=== PATIENT | female | born 1980 ===

== ENCOUNTER → 2019-01-02 | Outpatient (REF) | payer OTHER ==
[2019-01-02 14:15] LABS: ALT/SGPT 18 U/L (12-78); BLOOD UREA NITROGEN 9 MG/DL (7-18); CPK CREATINE PHOSPHOKINASE 54 U/L (26-192); CREATININE FOR GFR 0.82 MG/DL (0.55-1.30); FOLATE 6.1 NG/ML (>5.4); GLOMERULAR FILTRATION RATE > 60.0 (>60); RHEUMATOID FACTOR QUANT < 10.0 IU/ML (<15.0); THYROID STIMULATING HORMONE 0.688 uIU/ML (0.358-3.740); TOTAL PROTEIN 7.4 GM/DL (6.4-8.2)
[2019-01-02 14:24] LABS: VITAMIN B12 LEVEL 555 PG/ML (247-911)
[2019-01-04 13:11] LABS: ALBUMIN 4.19 GM/DL (3.29-5.55); ALBUMIN % 56.6 % (55.8-66.1); ALPHA-1-GLOBULIN % 3.9 % (2.9-4.9); ALPHA-1-GLOBULINS 0.29 GM/DL (0.17-0.41); ALPHA-2-GLOBULINS 0.75 GM/DL (0.42-0.99); ALPHA-2-GLOBULINS % 10.1 % (7.1-11.8); BETA-1-GLOBULINS 0.53 GM/DL (0.28-0.60); BETA-1-GLOBULINS % 7.1 % (4.7-7.2); BETA-2-GLOBULINS 0.46 GM/DL (0.19-0.55); BETA-2-GLOBULINS % 6.2 % (3.2-6.5); GAMMA GLOBULIN % 16.1 % (11.1-18.8); GAMMA GLOBULINS 1.19 GM/DL (0.65-1.58)
[2019-01-05 08:07] LABS: VITAMIN E(GAMMA TOCOPHEROL) 2.1 mg/L (0.7-4.9)
== END ==
LOC: M LABNEURO 11:32
PROVIDERS: ATTEND Psychiatry & Neurology Neurology
DX: R51 Headache (principal); R20.0 Anesthesia of skin

== ENCOUNTER → 2019-06-13 | Outpatient (REF) | payer OTHER | LOC: M LAB LCGH 12:52 | PROVIDERS: ATTEND Surgery | DX: L72.0 Epidermal cyst (principal) ==